=== PATIENT | male | born 1970 | race Caucasian/White ===

== ENCOUNTER → 2024-05-28 15:55 | Outpatient (REF) | payer BC, SELFPAY | LOC: CLAB 15:55 | PROVIDERS: ATTENDING PHYSICIAN Orthopaedic Surgery | DX: R22.31 Localized swelling, mass and lump, right upper limb (principal) | CPT/HCPCS: 88304 ==

== ENCOUNTER → 2024-09-01 06:22 | Day surgery (SDC) | payer BC, SELFPAY ==
[2024-08-17 13:56] VITALS: BMI 26.7
[2024-09-01 11:40] VITALS: BMI 26.7
[2024-09-01 11:43] VITALS: BP 128/86
[2024-09-01] MEDS: TYLENOL 1000 MG PO (11:58)
[2024-09-01] MEDS: NORMOSOL-R/PLASMALYTE-A 1000 IV (12:00)
--- NOTE | 2024-09-01 12:15 | PTCARENOTE ---
Patient has an IV infiltrate to the L hand from IV stick by Shannon LEONARD. Ice applied and hand elevated. After 15 minutes patient no longer wanted ice. Will monitor patient.
--- NOTE | 2024-09-01 16:00 | DOWNTIME ---
There was a [employer] Client [employer] Officer Downtime on 09/01/2024 from 1230 to 09/01/2024 at 1550. Downtime documentation of patient's care, including medication administrations, has been reconciled in the electronic record per guidelines. Refer to the
patient's paper chart under the miscellaneous tab to see printed paper medication records and downtime forms.
--- NOTE | 2024-09-01 16:35 | W.IMMPOSTOP ---
Surgical Immed Post Op Note
-
Primary Surgeon: Glynn Magana MD
Assisting Surgeon:
Pre-op Diagnosis: right knee medial meniscus tear, osteoarthritis
Post-op Diagnosis: right knee medial meniscus tear, medial plica, osteoarthritis
Procedure Performed: arthroscopic right knee partial medial meniscectomy, plica resection
Anesthesia Type: general
Specimen / Cultures: none
Estimated Blood Loss: 5mL
Complications: none apparent
Tourniquet time: 27 minutes @ 250 mmHg
Operative Findings: grade 2 patellar and trochlear chondrosis, grade 3 medial femoral condylar chondrosis, medial plica, stable tear posterior root medial meniscus
Operative dictation number: [id number]
== END ==
LOC: SDS 06:22
PROVIDERS: ATTENDING PHYSICIAN Student in an Organized Health Care Education/Training Program; FAMILY PHYSICIAN Nurse Practitioner
DX: S83.241A Other tear of medial meniscus, current injury, right knee, initial encounter (principal); X58.XXXA Exposure to other specified factors, initial encounter; M17.11 Unilateral primary osteoarthritis, right knee; M22.41 Chondromalacia patellae, right knee; M67.51 Plica syndrome, right knee
CPT/HCPCS: 29881; 36415; 93005